=== PATIENT | female | born 1995 | race Caucasian/White ===

== ENCOUNTER 2016-12-17 17:12 | Emergency (ER) | payer MEDICAID, OTHER ==
[~2016-12-17] VITALS: Ht 175.3 cm; Wt 116.6 kg
--- OUTSIDE RECORDS SUMMARY | 2016-12-17 17:19 | XMS REPORT | CCD ---
Author EUSEBIO Slater Organization Unknown Address [address] [place] [phone] Care Team Providers Care Or First Assist Registered Nurse Name Role Phone Glory MENDOZA Attphys Glory MENDOZA Prisurmaru Vital Signs Vital Sign Value Unit Date/Time Recent/Initial? Weight Measured 250 lbs 11/17/2015 02:44 Initial VS Height 69 in 2015 02:44 Initial VS BMI (Body Mass Index) 36.92 kg/m^2 11/17/2015 02:44 Initial VS BSA (Body Surface Area) 2.35 m^2 11/17/2015 02:44 Initial VS BP Systolic 138 mmHg 11/17/2015 02:44 Initial VS BP Diastolic 68 mmHg 11/17/2015 02:44 Initial VS Respiratory Rate 18 bpm 11/17/2015 02:44 Initial VS Heart Rate 84 bpm 03/2016 02:44 Initial VS O2 % BldC Oximetry 97 % 11/17/2015 02:44 Initial VS Body Temperature 98.8 degrees 11/17/2015 02:44 Initial VS Allergies Allergy Code Allergy Type Reaction Status No Known Drug Allergies 0 No known drug allergies Active Procedures Unknown or Not Available. History of Immunizations Unknown or Not Available. Problems Problem Code Start Date Resolved Date Status Generalized peritonitis [id number] 2014 Active Abscess of perineum 34254181 07/29/2015 Active Results Unknown or Not Available. Active Medications Unknown or Not Available. Medications Administered During Visit Unknown or Not Available. Encounters Unknown or Not Available. Social History Smoking Status Code Start Date End Date Current every day smoker [id number] Patient Decision Aids Patient Decision Aid Endometriosis Discharge Instructions You were admitted to [facility] on 11/17/2015. You were discharged from [facility] on 11/17/2015. Should you have any questions prior to discharge, please contact a member of your healthcare team. If you have left the hospital and have any questions, please contact your primary care physician. Chief Complaint and Reason For Visit Chief Complaint Date of Onset ABDOMIN PAIN 11/14/2015 Function Status Unknown or Not Available. Plan of Care Unknown or Not Available. Referral/Transition of Care Unknown or Not Available.
[2016-12-17 17:47] VITALS: BP 110/66
--- NOTE | 2016-12-17 17:58 | ED GU-Female ---
General Chief Complaint: -Female Stated Complaint: ABD CRAMPING Nursing Triage Note: PT REPORTS SHE HAS HAD LOWER ABDOMINAL CRAMPING SINCE YESTERDAY AND IS APROX 9 WEEKS PREG. PT DENIES ANY BLEEDING/SPOTTING. PT REPORTS SHE FELL THURSDAY AND WAS SEEN IN A HOSPITAL IN [place] BUT IS UNSURE OF THE NAME. PT REPORTS SHE HAD AN US THEN AND WAS PRESCRIBED HYDROCODONE. Nursing Sepsis Screen: No Definite Risk Source: patient Exam Limitations: no limitations History of Present Illness Time seen by provider: 17:58 Initial Comments 21-year-old female patient presents to the emergency department with complaints of lower abdominal cramping beginning yesterday. Patient states she is approximately 9 weeks . Patient states she fell Thursday while in [place] for her father's . Patient states she was seen at the emergency Department with a CT head, left shoulder x-ray, low back x-ray, possible CT chest, and ultrasound of the pelvis which were "all normal". Does not remember the name of the hospital or town that she was in. Patient states she is now on her way home to [place] from her father's . Patient does complain of mid/lower abdominal cramping and pelvic cramping. Denies vaginal bleeding, vaginal discharge, fever, nausea, vomiting, diarrhea. Timing/Duration: intermittent, other (onset yesterday.) Severity/Quality: cramping Location: suprapubic Radiation: other (mid to lower abdominal cramping.) Activities at Onset: none Prior Genitourinary Problems: similar symptoms Sexual [place] History: less than 2 months ago, single partner Modifying Factors: Worsens With Other (no improvement with hydrocodone prescribed by the ED physician in [place].) Allergies and Home Medications Allergies Coded Allergies: latex (Verified Allergy, Unknown, 12/17/16) Home Medications Hydrocodone/Acetaminophen 1 Each Tablet 1 EACH PO Q4H PRN PRN PAIN (Reported) Constitutional: No chills, No dizziness, No fever, No malaise, No weakness EENTM: no symptoms reported Respiratory: No cough, No short of breath Cardiovascular: No chest pain, No edema, No palpitations, No syncope Gastrointestinal: see HPI abdominal pain (mid to lower abdominal cramping/ suprapubic abdominal cramping.)No constipation, No diarrhea, No nausea, No vomiting Genitourinary: denies burning, denies dysuria, denies frequency, denies flank pain, denies hematuria, pain (suprapubic abdominal pain) Musculoskeletal: No back pain, No joint pain, No neck pain Skin: no symptoms reported Psychiatric/Neurological: Denies Headache, Denies Numbness, Denies Paresthesia , Denies Seizure, Denies Tingling, Denies Weakness All Other Systemes Reviewed Negative Unless Noted: Yes (Negative excepted noted.) Past Qmqgetx-Fbdvwi-Svsztm Hx Patient Social History Alcohol Use: Denies Use Recreational Drug Use: No Smoking Status: Current Everyday Smoker Type Used: Cigarettes 2nd Hand Smoke Exposure: No Recent Foreign Travel: No Contact w/Someone Who Travel: No Recent Infectious Disease Expo: No Recent Hopitalizations: No Seasonal Allergies Seasonal Allergies: No Surgeries HX Surgeries: Yes (EXPLORATORY LAP FOR ENDOMETRIOSES, PCOS, CATARACT) Surgeries: Eye Surgery, Gallbladder, Tonsillectomy Respiratory Hx Respiratory Disorders: No Cardiovascular Hx Cardiac Disorders: No Neurological Hx Neurological Disorders: No Reproductive System : Yes Hx : 14 Hx Para: 2 (1 living and 1 lived for only few hours.) Hx Total # of Abortions (Spona: 11 Hx Reproductive Disorders: Yes Female Reproductive Disorders: Endometriosis, Polycystic Ovarian Dis Genitourinary Hx Genitourinary Disorders: No Gastrointestinal Hx Gastrointestinal Disorders: No Musculoskeletal Hx Musculoskeletal Disorders: No Endocrine Hx Endocrine Disorders: No HEENT HX ENT Disorders: No Cancer Hx Cancer: No Psychosocial Hx Psychiatric Problems: No Integumentary HX Skin/Integumentary Disorder: No Blood Transfusions Hx Blood Disorders: No Reviewed Nursing Assessment Reviewed/Agree w Nursing PMH: Yes Family Medical History Significant Family History: No Pertinent Family Hx Physical Exam Vital Signs Capillary Refill : Less Than 3 Seconds General Appearance: WD/WN no apparent distress HEENT: PERRL/EOMI pharynx normal Neck: supple normal inspection Cardiovascular: normal peripheral pulses regular rate, rhythm no edema no murmur Respiratory: lungs clear normal breath sounds no respiratory distress Gastrointestinal: normal bowel sounds non tender soft no organomegalyNo distended Back: normal inspection no CVA tenderness no vertebral tenderness Extremities: no pedal edema normal capillary refill 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 Patient initially reported receiving hydrocodone while in [place], however per [facility] patient is noted to receive 60 tablets of hydrocodone 5/325 mg from [facility] in [place], [place]. Patient had 3 addresses in [place], [place] and [facility] in the last 5 months per [facility]. Patient now stating she received the prescription for pain medicine and traveled to [place], [place] to fill the medication where her family practitioner resides. States she then drove back to [place] and is now on her way back to [place]. Patient's story is very inconsistent. Soon after telling patient that we would be doing laboratory testing, patient states that her brother has had an MVA and she needs to leave immediately. Also reports her nephew had something fall on him and is needing to leave now. I discussed with the patient that we needing to do laboratory testing. Patient states she has an appointment on Thursday with her virtual assistant for advertisers in [place]. Discussed all risks and complications associated with leaving AGAINST MEDICAL ADVICE without diagnostic testing. Patient voices understanding and continues to refuse evaluation or treatment. Patient subsequently left AGAINST MEDICAL ADVICE. Dr. Dan notified of patient leaving AGAINST MEDICAL ADVICE. Impression Impression: Primary Impression: Left against medical advice Disposition: 07 AGAINST MEDICAL ADVICE Condition: Against Medical Advice Departure-Patient Inst. Decision time for Depature: 18:18 Referrals: NO,LOCAL PHYSICIAN (PCP/Family) Primary Care Physician CHARLIE SMILEY Dec 17, 2016 17:58
[2016-12-17] MEDS ORDERED: HYDR-3812 PO (17:59)
== END 2016-12-17 18:15 | disposition left against medical advice (07) ==
LOC: ER 17:15
DX: O26.891 Other specified pregnancy related conditions, first trimester (principal); R10.30 Lower abdominal pain, unspecified; O99.331 Smoking (tobacco) complicating pregnancy, first trimester; F17.210 Nicotine dependence, cigarettes, uncomplicated; Z3A.09 9 weeks gestation of pregnancy; Z53.29 Procedure and treatment not carried out because of patient's decision for other reasons
CPT/HCPCS: 99282